=== PATIENT | male | born 1940 | race Caucasian/White ===

== ENCOUNTER 2024-02-01 12:54 | Outpatient (CLI) | payer MEDICARE, SELFPAY ==
--- NOTE | ~2024-02-01 | CT_ITS ---
EXAMINATION: CT abdomen pelvis wo/w con DATE: 02/01/2024 13:33 INDICATION: Other specified disorders of kidney and ureter. Kidney mass. TECHNIQUE: Computed tomography (CT) of the abdomen and pelvis was performed without and with 100 mL O mnipaque 350 intravenous contrast. Automated exposure control and iterative reconstruction technique were employed. The dose-length product was 1673.10 mGy-cm. COMPARISON: None. FINDINGS: The visualized portions of the lung bases demonstrate mild atelectasis. There is a 5 mm nod ule in right middle lobe, likely benign. There is a 5 mm nodule in left lower lobe, likely benign. No pleural effusion. The heart size is normal. There are coronary artery calcifications. No pericardial effusion. The liver, gallbladder, spleen, pancreas, and adrenal glands are normal. There is cortical thinning of the kidneys. There is a 3.5 cm cyst in left kidney. There is a 7 mm cyst in left kidney. The prostate is moderately enlarged. There is diverticulosis of the colon without evidence of divert iculitis. There are no dilated loops of bowel. The appendix is normal. There is calcified atheroscler osis of the aorta and many of the other arteries. There are no pathologically enlarged lymph nodes. T here is no free intraperitoneal fluid. There are changes of inguinal hernia repairs. There is a total right hip arthroplasty. 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 There are changes of anterior and posterior fusion procedures from L4 to S1. IMPRESSION: 1. Benign cysts in left kidney. Reviewed, dictated and finalized at location E.
[2024-02-01 13:26] LABS: Estimated Glomerular Filt Rate > 60
== END 2024-02-01 12:55 | disposition home or self-care (01) ==
PROVIDERS: PCP Family Medicine; Visit Provider Urology
DX: N28.1 Cyst of kidney, acquired (principal)
CPT/HCPCS: 74178; Q9967